=== PATIENT | female | born 1950 | race Caucasian/White ===

== ENCOUNTER → 2017-07-21 13:13 | Outpatient (CLI) | payer MEDICARE, OTHER | END | disposition home or self-care (01) | LOC: D.MAMMO 13:13 | DX: Z12.31 Encounter for screening mammogram for malignant neoplasm of breast (principal) ==

== ENCOUNTER → 2018-07-07 17:50 | Outpatient (CLI) | payer MEDICARE, OTHER | END | disposition home or self-care (01) | LOC: D.MAMMO 10:00 | DX: N64.4 Mastodynia (principal) ==

== ENCOUNTER → 2019-02-11 15:57 | Outpatient (CLI) | payer MEDICARE, OTHER | END | disposition home or self-care (01) | LOC: D.US 15:57 | PROVIDERS: ATTEND Family Medicine | DX: R60.0 Localized edema (principal) ==

== ENCOUNTER 2020-06-08 06:35 | Day surgery (SDC) | payer MEDICARE, OTHER ==
[2020-06-06 12:12] LABS: HEMATOCRIT 39.7 % (36.0-48.0); HEMOGLOBIN 13.1 g/dL (12-16); MCH 29.4 pg (26.0-34.0); MEAN PLATELET VOLUME 9.6 fL (7.4-10.4); RBC 4.46 10x6/uL (4.00-5.40); RDW 13.6 % (11.5-14.5); WBC 7.6 10x3/uL (4.8-10.8)
[2020-06-06 12:23] LABS: CALC OSMOLALITY 267 mosm/kg (275-300); CARBON DIOXIDE 28.5 mmol/L (21.0-32.0); CHLORIDE - SERUM 97 mmol/L (98-107); CREATININE - SERUM 0.8 mg/dL (0.6-1.3); GLUCOSE 102 mg/dL (74-106); POTASSIUM - SERUM 4.4 mmol/L (3.5-5.1); SODIUM 133 mmol/L (136-145); UREA NITROGEN 19 mg/dL (7-18); eGFR NON AFRICAN AMERICAN 75 mL/min (90-120)
[~2020-06-08] VITALS: Ht 162.6 cm; Wt 88.5 kg
[~2020-06-08 06:35] MED LIST: BAYER CHEWABLE81 MG PO; COZAAR100 MG PO; ESTRACE1 MG PO; FUROSEMIDE20 MG PO; LIPITOR20 MG PO; NORVASC5 MG PO; OMEGA-3100 MG PO; POTASSIUM CHLO10 ME1 PO; PROTONIX40 MG PO; TIROSINT112 MCG PO; ZYRTEC10 MG PO
[2020-06-08 07:32] VITALS: BP 149/75; Ht 162.6 cm; Wt 88.5 kg
[2020-06-08] MEDS ORDERED: DILAUDID2 MG PO (10:00)
--- NOTE | 2020-06-08 10:24 | NUR ---
VANCOMYCIN 1.25 GRAMS IN 250ML INFUSING UPON ENTRY TO PACU. APPROX 75 ML REMAINING TO INFUSE.
--- NOTE | 2020-06-12 08:46 | OP ---
PATIENT NAME: MARLEY CUMMINGS MEDICAL RECORD: [id number] :52 LOCATION:[facility] ADMISSION DATE: SURGEON: DANIEL COON MD DATE OF OPERATION: 06/08/2020 PREOPERATIVE DIAGNOSIS: Impingement syndrome of the left shoulder with possible rotator cuff tear. POSTOPERATIVE DIAGNOSES: 1. Impingement syndrome of the left shoulder. 2. 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 3. Rotator cuff tear of the left shoulder -- full thickness. PROCEDURES: 1. Arthroscopic rotator cuff repair. 2. Arthroscopic distal clavicle excision done through separate incision under direct arthroscopic visualization - 1 cm. 3. Arthroscopic subacromial decompression with acromioplasty and bursectomy. SURGEON: Daniel Coon MD ANESTHESIA: General. INTRAOPERATIVE COMPLICATIONS: None. SUMMARY OF PATHOLOGIC FINDINGS: The patient did have some mild labral tearing with minimal amount of biceps tendinitis. The patient had a very profound anterior acromion hook, which was excoriated with substantial amount of synovitis. The patient also had a full thickness rotator cuff tear of the supraspinatus tendon and severe arthropathy of the acromioclavicular joint as indicated by the patient's MRI. OPERATIVE SUMMARY IN DETAIL: After obtaining the appropriate preoperative orthopedic surgery consent as well as anesthetic consultation, evaluation and clearance, the patient was brought to the operating room and placed on table in supine position. After general laryngeal mask airway was administered, the patient was placed in right lateral decubitus position. All pressure points well padded to include down leg peroneal pad as well as axillary roll. The patient was held firmly to the operating table using the vacuum pack suction system. Left upper extremity and shoulder were then prepped and draped in routine sterile fashion. The arm was held in the [employer] traction boom at 30 degrees of forward flexion, 30 degrees of abduction, and 10 pounds of traction laterally. Arthroscopy was established in the glenohumeral joint from the posterior portal. Anterior portal was established in the anterior safe interval. Diagnostic arthroscopy did reveal the patient has some mild labral tearing that was gently debrided; however, there was no true SLAP lesion and biceps tendon had mild tendinitis, but no adhesions. Attention was then turned to the subacromial space. While on subacromial space, accessory lateral portal was created through which the Jarales tissue ablation system was utilized to denude the undersurface of the acromion of all soft tissue elements and release the coracoacromial ligament. A 5-0 barrel bur was then used to perform acromioplasty at the level of acromioclavicular joint. At this time, separate anterior portal was utilized to take down 1 cm of the distal clavicle. Anterior to posterior and debride the inferior osteophytes were noted. Having completed this, attention was turned to the rotator cuff. The rotator cuff free edge was OPERATIVE REPORT [id number] MARLEY CUMMINGS debrided back to thick stable elements and the supraspinatus tendinous footprint on the greater tuberosity was decorticated. A single mattress FiberTape was placed with a loose cinch and anchored laterally with a single 5.5 SwiveLock from [employer]. Having completed this, arthroscopy portals were closed in routine interrupted fashion using 4-0 Prolene. Sterile dressings were applied. Sling was applied. The patient was awakened and taken to the recovery room in stable condition. All final needle and sponge counts were correct. Please note that prior to beginning of the case, the appropriate timeout was taken and agreed upon by all given the patient's unique identifiers. TRANSINT:[id number] Voice Confirmation ID: [id number] DOCUMENT ID: [id number] DANIEL COON MD at 0846 CC: [id number] DICTATION DATE: 06/08/20 1004 [employer] TEACHER: 06/08/20 1131 [facility] 06/08/20 [id number] [place] [address]
== END 2020-06-08 12:15 | disposition home or self-care (01) ==
LOC: D.OPS 06:35
PROVIDERS: Anesthesiology; ATTEND Orthopaedic Surgery
DX: M75.42 Impingement syndrome of left shoulder (principal); M12.812 Other specific arthropathies, not elsewhere classified, left shoulder; M75.102 Unspecified rotator cuff tear or rupture of left shoulder, not specified as traumatic; M25.512 Pain in left shoulder; I10 Essential (primary) hypertension; K21.9 Gastro-esophageal reflux disease without esophagitis; M13.812 Other specified arthritis, left shoulder